=== PATIENT | male | born 1965 | race Caucasian/White ===

== ENCOUNTER 2020-04-09 20:57 | Outpatient (REF) | payer BC, SELFPAY ==
[2020-04-09 21:22] LABS: Hemoglobin A1C 6.1 % (<5.7)
[2020-04-09 21:25] LABS: Calculated LDL 124 mg/dL (<100); Cholesterol 203 mg/dL (<200); HDL Cholesterol 51 mg/dL (40-60); Triglyceride 142 mg/dL (<150)
== END 2020-04-09 21:17 ==
LOC: LBN 20:57
PROVIDERS: PCP Emergency Medicine; Visit Provider Emergency Medicine
DX: E78.5 Hyperlipidemia, unspecified (principal); E11.9 Type 2 diabetes mellitus without complications
CPT/HCPCS: 80061; 83036

== ENCOUNTER 2020-10-08 15:50 | Outpatient (REF) | payer BC, SELFPAY ==
[2020-10-08 20:47] LABS: Hemoglobin A1C 6.1 % (<5.7)
[2020-10-08 20:52] LABS: Calculated LDL 86 mg/dL (<100); Cholesterol 166 mg/dL (<200); HDL Cholesterol 60 mg/dL (40-60); Triglyceride 103 mg/dL (<150)
== END 2020-10-08 15:51 | disposition home or self-care (01) ==
LOC: NCHCN 15:50
PROVIDERS: PCP Emergency Medicine; Visit Provider Emergency Medicine
DX: E78.5 Hyperlipidemia, unspecified (principal); E66.9 Obesity, unspecified; E11.9 Type 2 diabetes mellitus without complications
CPT/HCPCS: 80061; 83036

== ENCOUNTER 2021-06-16 10:15 | Outpatient (CLI) | payer BC, SELFPAY ==
--- NOTE | 2021-06-16 08:51 | DI.RAD_ITS ---
Exam(s) XR KNEE RT 3V AP,LAT,CHARLENE EXAM: XR KNEE RT 3V AP,LAT,CHARLENE CLINICAL HISTORY: Right knee pain, M25.569. TECHNIQUE: 2D digital imaging was performed. COMPARISON: No exams were available for comparison FINDINGS: No evidence of acute fracture but there does appear to be a joint effusion which may signify an inter nal derangement. No obvious degenerative changes. No osseous lesions. Bone density normal. IMPRESSION: No fractures but there is a joint effusion. Orthopedic follow-up recommended. DATA REPOSITORY: RADIATION DOSE DELIVERED:
== END 2021-06-16 10:35 ==
PROVIDERS: PCP Emergency Medicine; Visit Provider Emergency Medicine
DX: M25.561 Pain in right knee (principal); M25.461 Effusion, right knee
CPT/HCPCS: 73562

== ENCOUNTER 2021-08-15 15:28 | Outpatient (CLI) | payer BC, SELFPAY ==
--- NOTE | 2021-08-15 15:15 | DI.RAD_ITS ---
Exam(s) XR KNEE LT 3V AP,LAT,CHARLENE EXAM: XR KNEE LT 3V AP,LAT,CHARLENE CLINICAL HISTORY: left knee pain. TECHNIQUE: 2D digital imaging was performed. COMPARISON: CR XR KNEE RT 3V AP,LAT,CHARLENE from 06/16/2021 FINDINGS: There is no evidence acute fracture. There is a joint effusion, similar to the opposite side. Calci fication is also noted the insertional aspect quadriceps tendon on the anterosuperior patella as well as calcification at the insertion site of the patellar ligament. On the AP view there is minimal na rrowing of the medial compartment. No marginal osteophytes. Lateral compartment exhibits normal hei ght. IMPRESSION: DATA REPOSITORY: RADIATION DOSE DELIVERED:
== END 2021-08-15 15:29 | disposition home or self-care (01) ==
LOC: DIORS 15:29
PROVIDERS: PCP Emergency Medicine; Referring Provider Emergency Medicine; Visit Provider Student in an Organized Health Care Education/Training Program
DX: M25.562 Pain in left knee (principal); M25.462 Effusion, left knee; M65.88 Other synovitis and tenosynovitis, other site
CPT/HCPCS: 73562

== ENCOUNTER 2021-10-14 02:30 | Outpatient (CLI) | payer BC, SELFPAY ==
[2021-10-14 12:52] LABS: Hemoglobin A1C 6.2 % (<5.7)
[2021-10-14 13:25] LABS: Calculated LDL 76 mg/dL (<100); Cholesterol 168 mg/dL (<200); HDL Cholesterol 57 mg/dL (40-60); Triglyceride 175 mg/dL (<150)
[2021-10-14 22:44] LABS: PSA, Screening 0.4 ng/mL (<=3.5)
[2021-10-17 12:34] LABS: TB Interpretation Negative (Negative); TB1 Ag minus Nil 0.01 IU/ml; TB2 Ag minus Nil 0.01 IU/mL
== END 2021-10-14 02:31 | disposition home or self-care (01) ==
LOC: LBO 02:31
PROVIDERS: Emergency Medicine; PCP Nurse Practitioner Family; Visit Provider Dermatology
DX: E78.5 Hyperlipidemia, unspecified (principal); E11.9 Type 2 diabetes mellitus without complications; E66.9 Obesity, unspecified; N40.0 Benign prostatic hyperplasia without lower urinary tract symptoms; Z12.5 Encounter for screening for malignant neoplasm of prostate; Z79.899 Other long term (current) drug therapy
CPT/HCPCS: 36415; 80061; 84153; 83036; 86480

== ENCOUNTER 2022-11-17 02:53 | Outpatient (CLI) | payer BC, SELFPAY ==
[2022-11-17 15:54] LABS: Abs Immature Grans 0.01 10^3/uL (0.0-0.06); Absolute Basophil Count 0.04 10^3/uL (0.0-0.2); Absolute Eosinophil Count 0.13 10^3/uL (0.0-0.7); Absolute Lymphocyte Count 2.28 10^3/uL (1.2-3.4); Absolute Monocyte Count 0.54 10^3/uL (0.1-0.8); Basophils % 0.6; Eosinophils % 2.1; HCT 39.1 % (40.0-50.0); HGB 13.1 g/dL (13.5-17.5); Immature Grans % 0.2; Lymphocytes % 36.8; MCH 30.8 pg (27.0-33.0); MCHC 33.5 % (32.0-36.0); MCV 92 fL (80-95); MPV 8.7 fL (8.0-11.0); Monocytes % 8.7; Neutrophils % 51.6; Platelet Count 215 10^3/uL (130-400); RBC 4.25 10^6/uL (4.36-5.78); RDW-SD 43.7 fL
[2022-11-17 15:58] LABS: ESR 8 mm/hr (0-20)
[2022-11-17 16:47] LABS: Hemoglobin A1C 5.8 % (<5.7)
[2022-11-17 16:48] LABS: ALT 27 U/L (16-63); AST 20 U/L (15-37); Albumin 3.8 g/dL (3.4-5.0); Alkaline Phosphatase 61 U/L (46-116); Anion Gap 8.3 mmol/L (3-11); BUN 18 mg/dL (7-18); Bilirubin, Total 0.3 mg/dL (0.2-1.0); CO2 27.7 mmol/L (21.0-32.0); CREATININE 1.1 mg/dL (0.70-1.30); Calcium 8.9 mg/dL (8.5-10.1); Chloride 104 mmol/L (98-107); Estimated GFR 77.81 (mL/min/1.73m2); Glucose 122 mg/dL (74-106); Potassium 4.1 mmol/L (3.5-5.1); Sodium 140 mmol/L (136-145); Total Protein 7.6 g/dL (6.4-8.2)
[2022-11-17 16:53] LABS: C-Reactive Protein < 0.05 mg/dL (0.0-0.3)
[2022-11-18 22:07] LABS: Rheumatoid Factor <8.6 IU/mL (<12.0)
[2022-11-20 09:59] LABS: Cyclic Citrullinated Peptide <2.5 U/mL (<5.0)
== END 2022-11-17 02:54 | disposition home or self-care (01) ==
PROVIDERS: PCP Nurse Practitioner Family; Visit Provider Student in an Organized Health Care Education/Training Program
DX: E66.9 Obesity, unspecified (principal); L40.50 Arthropathic psoriasis, unspecified; L40.9 Psoriasis, unspecified; R73.09 Other abnormal glucose
CPT/HCPCS: 36415; 80053; 85652; 86200; 83036; 85025; 86140; 86431

== ENCOUNTER 2022-11-21 03:56 | Outpatient (CLI) | payer BC, SELFPAY ==
[2022-11-21 12:43] LABS: Hemoglobin A1C 5.8 % (<5.7)
[2022-11-21 13:01] LABS: Calculated LDL 77 mg/dL (<100); Cholesterol 154 mg/dL (<200); HDL Cholesterol 61 mg/dL (40-60); Triglyceride 80 mg/dL (<150)
== END 2022-11-21 03:57 | disposition home or self-care (01) ==
LOC: LOS 04:00
PROVIDERS: PCP Nurse Practitioner Family; Visit Provider Emergency Medicine
DX: E78.5 Hyperlipidemia, unspecified (principal); E11.9 Type 2 diabetes mellitus without complications; E66.9 Obesity, unspecified
CPT/HCPCS: 36415; 80061; 83036

== ENCOUNTER 2023-12-26 01:50 | Outpatient (CLI) | payer OTHER, SELFPAY ==
[2023-12-26 12:35] LABS: Hemoglobin A1C 6.2 % (<5.7)
[2023-12-26 12:37] LABS: Calculated LDL 71 mg/dL (<100); Cholesterol 151 mg/dL (<200); HDL Cholesterol 60 mg/dL (40-60); Triglyceride 103 mg/dL (<150)
== END 2023-12-26 01:51 | disposition home or self-care (01) ==
LOC: LOS 01:50
PROVIDERS: PCP Nurse Practitioner Family; Visit Provider Nurse Practitioner Family
DX: E78.5 Hyperlipidemia, unspecified (principal); Z13.1 Encounter for screening for diabetes mellitus
CPT/HCPCS: 36415; 80061; 83036

== ENCOUNTER 2024-11-20 03:27 | Outpatient (CLI) | payer OTHER, SELFPAY ==
[2024-11-20 08:07] LABS: Hemoglobin A1C 6.3 % (<5.7)
[2024-11-20 08:16] LABS: Anion Gap 4.2 mmol/L (3-11); BUN 16 mg/dL (7-18); CO2 29.8 mmol/L (21.0-32.0); Calcium 9.3 mg/dL (8.5-10.1); Calculated LDL 85 mg/dL (<100); Chloride 104 mmol/L (98-107); Cholesterol 170 mg/dL (<200); Estimated GFR 86.16 (mL/min/1.73m2); Glucose 116 mg/dL (74-106); HDL Cholesterol 62 mg/dL (>or=40); Potassium 4.2 mmol/L (3.5-5.1); Sodium 138 mmol/L (136-145); Triglyceride 119 mg/dL (<150)
== END 2024-11-20 03:28 | disposition home or self-care (01) ==
LOC: LBO 03:27
PROVIDERS: PCP Nurse Practitioner Family; Visit Provider Nurse Practitioner Family
DX: Z13.1 Encounter for screening for diabetes mellitus (principal); Z13.220 Encounter for screening for lipoid disorders
CPT/HCPCS: 36415; 80048; 80061; 83036